=== PATIENT | female | born 1985 | race Caucasian/White ===

== ENCOUNTER 2017-10-22 16:07 | Inpatient (IN) | payer MEDICAID ==
[~2017-10-22] VITALS: Ht 170.2 cm; Wt 114.2 kg
[~2017-10-22 16:07] MED LIST: IBUP-1222 PO; OXYC-302 PO; PREN1TAB27 PO
[2017-10-22 17:06] LABS: MICROSCOPIC NOT IND
[2017-10-22 17:12] LABS: CULTURE INDICATED? NO
[2017-10-22 17:14] LABS: ALANINE AMINOTRANSFERASE 16 U/L (12-78); ALBUMIN 3.6 g/dL (3.4-5.0); ANION GAP 8 mmol/L (5-15); CALCIUM 9.1 mg/dL (8.5-10.1); CHLORIDE 109 mmol/L (98-107); CREATININE 0.68 mg/dL (0.55-1.02)
[2017-10-22 17:18] LABS: ALKALINE PHOSPHATASE 73 U/L (45-117); TOTAL PROTEIN 7.1 g/dL (6.4-8.2)
[2017-10-22] MEDS ORDERED: ONDANSETRON ODT 4 MG ONE (17:19)
[2017-10-22] MEDS ORDERED: MAALOX/HYOSCYAMINE/LIDOCAINE 45 ML BTL ONE (17:19)
[2017-10-22] MEDS ORDERED: ONDANSETRON ODT 4 MG PO ONE (17:30)
[2017-10-22] MEDS ORDERED: MAALOX/HYOSCYAMINE/LIDOCAINE 45 ML BTL PO ONE (17:30)
[2017-10-22] MEDS ORDERED: SODIUM CHLORIDE FLUSH 10ML SYR IVF ONE (18:00)
[2017-10-22] MEDS ORDERED: PANTOPRAZOLE 40 MG IV IVPush ONE ×2 (18:00→18:30)
[2017-10-22 18:02] LABS: MEAN CORPUSCULAR HEMOGLOBIN 15.3 pg (27.0-34.8); MEAN CORPUSCULAR VOLUME 55.3 fL (80-100); MEAN PLATELET VOLUME 8.6 fL (7.4-10.4); PLATELET COUNT 467 x10^3/uL (130-400); RED BLOOD COUNT 3.66 x10^6/uL (3.82-5.3); RED CELL DISTRIBUTION WIDTH 22.8 % (9.6-15.2)
[2017-10-22 18:03] LABS: HEMOGRAM NOTE RECHECKED; MEAN CORPUSCULAR HGB CONC 27.8 g/dL (32.4-35.8)
[2017-10-22 18:05] LABS: HEMOGRAM NOTE RECHECKED
[2017-10-22 18:17] LABS: PROTHROMBIN TIME 10.4 Seconds (9.6-11.5)
[2017-10-22] MEDS ORDERED: PANTOPRAZOLE 80 MG in SODIUM CHLORIDE 0.9% 100 ML IV SCH (18:18)
[2017-10-22 18:19] LABS: MD YES
[2017-10-22 18:23] LABS: ANISOCYTOSIS 2+; BAND#(MANUAL) 0.22 x10^3/uL; BANDS%(MANUAL) 3 % (0-7); EOS#(MANUAL) 0.07 x10^3/uL (0.0-0.4); EOS% (MANUAL) 1 % (1-7); LYMPH#(MANUAL) 2.81 x10^3/uL (1-3.4); LYMPHS% (MANUAL) 38 % (22-44); MONOS#(MANUAL) 0.15 x10^3/uL (0.3-2.7); MONOS% (MANUAL) 2 % (2-9); SEG#(MANUAL) 4.14 x10^3/uL (1.8-6.8); SEGS% (MANUAL) 56 % (42-75)
[2017-10-22 18:24] LABS: HYPOCHROMIA 3+; MICROCYTOSIS 3+; POLYCHROMASIA 1+; ROULEAUX 1+
[2017-10-22 18:25] LABS: <PLATELET ESTIMATE> ADEQUATE; LARGE PLATELETS 1+; TEAR DROPS 1+
[2017-10-22] MEDS ORDERED: PANTOPRAZOLE 40 MG IV ONE (18:42)
[2017-10-22] MEDS: SODIUM CHLORIDE 0.9% 1,000 ML IV SCH (19:00)
[2017-10-22] MEDS ORDERED: ACETAMINOPHEN 325 MG TABLET PO PRN (19:00)
[2017-10-22] MEDS ORDERED: hydrALAzine 20 MG/ML, 1ML IVPush PRN (19:00)
[2017-10-22] MEDS ORDERED: MORPHINE SULFATE 4 MG/ML, 1ML IVPush PRN (19:00)
[2017-10-22] MEDS ORDERED: LABETALOL 5MG/ML, 20ML IVPush PRN (19:00)
[2017-10-22] MEDS ORDERED: POLYETHYLENE GLYCOL 17 GM PACKET PO PRN (19:00)
[2017-10-22] MEDS ORDERED: OXYcodone IR 5MG TABLET PO PRN (19:00)
[2017-10-22] MEDS ORDERED: ONDANSETRON 2MG/ML, 2ML IVPush PRN (19:00)
[2017-10-22] MEDS ORDERED: DOCUSATE 100 MG CAPSULE PO PRN (19:00)
[2017-10-22] MEDS ORDERED: BISACODYL 10 MG SUPP PR PRN (19:00)
[2017-10-22 19:42] LABS: FREE T4 (FREE THYROXINE) 0.77 ng/dL (0.76-1.46); THYROID STIMULATING HORMONE 1.29 mIU/L (0.358-3.740)
[2017-10-22] MEDS ORDERED: ONDANSETRON ODT 4 MG PO PRN (20:00)
[2017-10-22 21:50] VITALS: BP 110/68
[2017-10-22 23:19] VITALS: BP 109/69
[2017-10-22 23:40] VITALS: BP 144/76
[2017-10-22 23:55] VITALS: BP 121/53
[2017-10-23] VITALS (13 sets, daily range): BP systolic 99–156; BP diastolic 58–82
[2017-10-23] MEDS: OXYcodone/APAP 5/325MG TABLET PO PRN ×2 (01:18→15:31)
[2017-10-23 05:34] LABS: ALBUMIN 3.3 g/dL (3.4-5.0); ANION GAP 7 mmol/L (5-15); CALCIUM 9.1 mg/dL (8.5-10.1); CHLORIDE 111 mmol/L (98-107); MEAN CORPUSCULAR HEMOGLOBIN 17.5 pg (27.0-34.8); MEAN CORPUSCULAR VOLUME 60.5 fL (80-100); MEAN PLATELET VOLUME 8.5 fL (7.4-10.4); PLATELET COUNT 392 x10^3/uL (130-400); RED BLOOD COUNT 3.81 x10^6/uL (3.82-5.3); RED CELL DISTRIBUTION WIDTH 29.3 % (9.6-15.2)
[2017-10-23 05:39] LABS: ALANINE AMINOTRANSFERASE 14 U/L (12-78); ALKALINE PHOSPHATASE 67 U/L (45-117); BILIRUBIN,TOTAL 1.5 mg/dL (0.2-1.0); CHOL/HDL RATIO 2.9; CHOLESTEROL, TOTAL 90 mg/dL (140-239); CREATININE 0.64 mg/dL (0.55-1.02); HDL CHOL % 34 % (28-40); HDL CHOLESTEROL (DIRECT) 31 mg/dL (40-60); LDL CHOLESTEROL,CALCULATED 40 mg/dL (54-169); LDL/HDL RATIO 1.3 (0.5-3.0); TOTAL PROTEIN 6.4 g/dL (6.4-8.2); TRIGLYCERIDES 97 mg/dL (50-200); VLDL CHOLESTEROL 19 mg/dL (0-25)
[2017-10-23 06:01] LABS: MD YES
[2017-10-23 06:03] LABS: ANISOCYTOSIS 2+; HYPOCHROMIA 3+; LYMPH#(MANUAL) 3.69 x10^3/uL (1-3.4); LYMPHS% (MANUAL) 41 % (22-44); MONOS#(MANUAL) 0.63 x10^3/uL (0.3-2.7); MONOS% (MANUAL) 7 % (2-9); SEG#(MANUAL) 4.68 x10^3/uL (1.8-6.8); SEGS% (MANUAL) 52 % (42-75)
[2017-10-23 06:09] LABS: MICROCYTOSIS 3+; POLYCHROMASIA 1+
[2017-10-23 06:10] LABS: OVALOCYTES 1+; TEAR DROPS 1+
[2017-10-23 06:11] LABS: <PLATELET ESTIMATE> ADEQUATE; <PLT MORPHOLOGY> NORMAL PLT MORPH
[2017-10-23] MEDS: SODIUM CHLORIDE 0.9% 1,000 ML IV SCH (06:22)
[2017-10-23] MEDS ORDERED: DIPHENHYDRAMINE 12.5MG/5ML, 10ML UDC PO ONE (08:30)
[2017-10-23] MEDS ORDERED: FENTANYL PF 100 MCG/2ML ONE (08:50)
[2017-10-23] MEDS ORDERED: MIDAZOLAM 1 MG/ML, 5ML ONE (08:50)
[2017-10-23] MEDS ORDERED: IRON SUCROSE COMPLEX 100MG/5ML IV SCH (09:00)
[2017-10-23] MEDS ORDERED: FERR324T18 PO (12:31)
[2017-10-23] MEDS ORDERED: OMEP-110 PO (12:31)
[2017-10-23] MEDS ORDERED: CLAR500T PO (12:31)
[2017-10-23] MEDS ORDERED: AMOX-291 PO (12:31)
[2017-10-23] MEDS ORDERED: ERGO500017 PO (12:40)
[2017-10-23] MEDS ORDERED: PANTOPRAZOLE 80 MG in SODIUM CHLORIDE 0.9% 100 ML IV SCH (18:18)
== END 2017-10-23 17:38 | disposition home or self-care (01) | DRG 868 ==
LOC: OR 21:47 → 3NW 22:02
PROVIDERS: ADMIT Internal Medicine; ATTEND Internal Medicine
PROC: 30233N1 Transfusion of Nonautologous Red Blood Cells into Peripheral Vein, Percutaneous Approach (ICD-10-PCS; principal; 2017-10-22)
PROC: 0DB98ZX Excision of Duodenum, Via Natural or Artificial Opening Endoscopic, Diagnostic (ICD-10-PCS; 2017-10-23)
DX: B96.81 Helicobacter pylori [H. pylori] as the cause of diseases classified elsewhere (principal); E46 Unspecified protein-calorie malnutrition; K76.0 Fatty (change of) liver, not elsewhere classified; E66.01 Morbid (severe) obesity due to excess calories; K92.2 Gastrointestinal hemorrhage, unspecified; N28.1 Cyst of kidney, acquired; D50.9 Iron deficiency anemia, unspecified; E55.9 Vitamin D deficiency, unspecified; Z80.0 Family history of malignant neoplasm of digestive organs; Z80.3 Family history of malignant neoplasm of breast; Z80.1 Family history of malignant neoplasm of trachea, bronchus and lung; Z68.39 Body mass index [BMI] 39.0-39.9, adult
CPT/HCPCS: 36415; 36430; 76700; 80053; 80061; 81003; 82306; 82607; 82728; 82746; 82784; 83036; 83516; 83540; 83550; 83690; 83735; 84439; 84443; 84466; 84703; 85014; 85018; 85025; 85610; 85730; 86255; 86677; 86850; 86900; 86923; 96374; 99152; 99153; J1756; J2250; J3010; Q0162; C9113; J7030; P9016

== ENCOUNTER → 2018-01-29 | Outpatient (CLI) | payer MEDICAID ==
[~2018-01-29] MED LIST changes: +AMOX-291 PO; +CLAR500T PO; +ERGO500017 PO; +FERR324T18 PO; +OMEP-110 PO; +OMNIPAQUE 350 MG/ML, 150 ML BOTTLE ONE
== END | disposition home or self-care (01) ==
LOC: RAD 13:15
PROVIDERS: ATTEND Internal Medicine
DX: C18.9 Malignant neoplasm of colon, unspecified (principal); R59.1 Generalized enlarged lymph nodes
CPT/HCPCS: 71260; 74177; Q9967

== ENCOUNTER → 2018-04-04 | Outpatient (CLI) | payer MEDICAID ==
[~2018-04-04] MED LIST changes: +FENTANYL PF 100 MCG/2ML ONE; +FLUMAZENIL 0.1 MG/1 ML, 5ML ONE; +MIDAZOLAM 1 MG/ML, 5ML ONE; +NALOXONE 1 MG/ML, 2ML ONE; -OMNIPAQUE 350 MG/ML, 150 ML BOTTLE ONE; +ONDA8TAB9 PO; +VISIPAQUE 270 MG/ML, 50ML BOTTLE ONE
== END | disposition home or self-care (01) ==
LOC: RAD 15:54
PROVIDERS: ATTEND Internal Medicine Hematology & Oncology
DX: T85.618A Breakdown (mechanical) of other specified internal prosthetic devices, implants and grafts, initial encounter (principal); D50.9 Iron deficiency anemia, unspecified; E66.9 Obesity, unspecified; Y83.8 Other surgical procedures as the cause of abnormal reaction of the patient, or of later complication, without mention of misadventure at the time of the procedure; Y92.89 Other specified places as the place of occurrence of the external cause; Z85.038 Personal history of other malignant neoplasm of large intestine; Z98.890 Other specified postprocedural states
CPT/HCPCS: 36598; 76000; Q9966; J2250; J3010; J1642; J2310

== ENCOUNTER 2018-04-05 11:55 | Day surgery (SDC) | payer MEDICAID ==
[~2018-04-05] VITALS: Ht 170.2 cm; Wt 105.7 kg
[~2018-04-05 11:55] MED LIST changes: -FENTANYL PF 100 MCG/2ML ONE; -FLUMAZENIL 0.1 MG/1 ML, 5ML ONE; -MIDAZOLAM 1 MG/ML, 5ML ONE; -NALOXONE 1 MG/ML, 2ML ONE; -ONDA8TAB9 PO; -VISIPAQUE 270 MG/ML, 50ML BOTTLE ONE
[2018-04-05] MEDS ORDERED: SODIUM CHLORIDE 0.9% 1,000 ML IV SCH (12:26)
[2018-04-05] MEDS ORDERED: CEFAZOLIN PMX 1GM/50ML 50 ML IV ONE (12:30)
[2018-04-05] MEDS ORDERED: LIDOCAINE/PF 1%, 30ML ONE (12:30)
[2018-04-05 12:51] VITALS: BP 106/68
[2018-04-05] MEDS ORDERED: ONDA8TAB9 PO (12:57)
[2018-04-05] MEDS ORDERED: HYDROcodone/APAP 10/325 MG TABLET ONE (15:17)
[2018-04-05] MEDS ORDERED: HYDROcodone/APAP 10/325 MG TABLET PO ONE (15:30)
== END 2018-04-05 17:00 | disposition home or self-care (01) ==
LOC: OUT 11:55
PROVIDERS: ATTEND Internal Medicine Hematology & Oncology
DX: Z45.2 Encounter for adjustment and management of vascular access device (principal); C18.0 Malignant neoplasm of cecum; D50.9 Iron deficiency anemia, unspecified
CPT/HCPCS: 36561; 36590; 77001; 99156; 99157; C1788; J0690; J1642; J3490; J7030

== ENCOUNTER 2021-02-22 12:23 | Emergency (ER) | payer MEDICAID ==
[~2021-02-22] VITALS: Ht 170.2 cm; Wt 110.0 kg
[~2021-02-22 12:23] MED LIST changes: +CLAR-14 PO; -CLAR500T PO; +ONDA8TAB9 PO; -OXYC-302 PO; +OXYC1TAB12 PO
--- NOTE | 2021-02-22 12:27 | NUR ---
PT AMBULATES WELL TO BATHROOM FOR UA SPECIMEN.
[2021-02-22] MEDS ORDERED: MORPHINE SULFATE 4 MG/ML, 1ML ONE ×2 (12:51→14:47)
[2021-02-22] MEDS ORDERED: ONDANSETRON 2MG/ML, 2ML ONE (12:51)
[2021-02-22] MEDS ORDERED: SODIUM CHLORIDE FLUSH 10ML SYR IVF ONE (13:00)
[2021-02-22] MEDS ORDERED: SODIUM CHLORIDE 0.9% 1,000ML IVBOLUS ONE (13:00)
[2021-02-22] MEDS ORDERED: PLEASE ENTER HEIGHT AND WEIGHT MC SCH (13:00)
[2021-02-22] MEDS ORDERED: ONDANSETRON 2MG/ML, 2ML IVPush ONE (13:00)
[2021-02-22] MEDS: MORPHINE SULFATE 4 MG/ML, 1ML IVPush PRN ×2 (13:02→14:49)
[2021-02-22 13:07] LABS: MICROSCOPIC INDICATED
--- NOTE | 2021-02-22 13:10 | NUR ---
pt changed into gown. provided urine sample, walked to lab. pt states genralized abd pain started yesterday am. pt states when she was dx c colon ca in 2018 she had similiar type pain. pt states she had a colon resection and only did 2months of chemo, vs the recommended 6months. piv estb. meds per aug. aware of pending ct. will ctm.
[2021-02-22 13:11] LABS: BASOPHILS % (AUTO) 0 % (0-1); EOSINOPHILS % (AUTO) 1 % (1-7); LYMPHOCYTES % (AUTO) 10 % (22-44); MEAN CORPUSCULAR HGB CONC 32.4 g/dL (32.4-35.8); MEAN PLATELET VOLUME 9.3 fL (7.4-10.4); MONOCYTES % (AUTO) 9 % (2-9); NEUTROPHILS % (AUTO) 80 % (42-75); PLATELET COUNT 388 x10^3/uL (130-400); RED BLOOD COUNT 5.62 x10^6/uL (3.82-5.3); RED CELL DISTRIBUTION WIDTH 14.7 % (9.6-15.2)
[2021-02-22 13:21] LABS: ALANINE AMINOTRANSFERASE 37 U/L (12-78); ALBUMIN 4.1 g/dL (3.4-5.0); ANION GAP 8 mmol/L (5-15); CALCIUM 9.6 mg/dL (8.5-10.1); CHLORIDE 105 mmol/L (98-107); CREATININE 0.72 mg/dL (0.55-1.02)
[2021-02-22 13:26] LABS: ALKALINE PHOSPHATASE 124 U/L (45-117); BILIRUBIN,TOTAL 1.7 mg/dL (0.2-1.0); TOTAL PROTEIN 8.8 g/dL (6.4-8.2)
[2021-02-22] MEDS ORDERED: OMNIPAQUE 350 MG/ML, 100ML BOTTLE ONE (14:22)
[2021-02-22 14:44] VITALS: BP 126/51
[2021-02-22] MEDS ORDERED: CEFDINIR 300 MG CAPSULE ONE (14:46)
[2021-02-22] MEDS ORDERED: CEFDINIR 300 MG CAPSULE PO ONE (15:00)
== END 2021-02-22 15:20 | disposition home or self-care (01) ==
LOC: ED 12:43
DX: K52.9 Noninfective gastroenteritis and colitis, unspecified (principal); N30.01 Acute cystitis with hematuria; Z85.038 Personal history of other malignant neoplasm of large intestine
CPT/HCPCS: 36415; 74177; 80053; 81001; 83690; 84703; 85025; 87086; 96361; 96374; 96375; 96376; 99285; J2270; J2405; J7030; Q9967